=== PATIENT | male | born 1965 | race Two or more races ===

== ENCOUNTER 2019-12-01 07:07 | Day surgery (SDC) | payer OTHER ==
[~2019-12-01] VITALS: Ht 167.6 cm; Wt 99.8 kg
[2019-12-01] VITALS (9 sets, daily range): BP systolic 121–146; BP diastolic 77–88
[~2019-12-01 07:07] MED LIST: ceFAZolin 1gm IVPB IVPB ONE; celeBREX 200mg Cap **SURGERY PATIENTS ONLY ORAL ONE; oxyCONTIN 20mg tab ORAL ONE
--- NOTE | 2019-12-01 07:27 | Pre-Procedure Note/Attestation ---
Pre-Procedure Note/Attestation Complete Prior to Procedure Planned Procedure: right Procedure Narrative: knee arthroscopy, menisectomy Indications for Procedure Pre-Operative Diagnosis: right knee meniscus tear Attestation I attest that I discussed the nature of the procedure; its benefits; risks and complications; and alternatives (and the risks and benefits of such alternatives ), prior to the procedure, with the patient (or the patient's legal automobile sales representative). I attest that, if there was a reasonable possibility of needing a blood transfusion, the patient (or the patient's legal automobile sales representative) was given the [facility] standardized written summary, pursuant to the Stevie [place] Blood Safety Act ([place] Health and Safety Code # 1645, as amended). I attest that I re-evaluated the patient just prior to the surgery and that there has been no change in the patient's H&P, except as documented below: Ector Saavedra MD Dec 01, 2019 07:27
--- NOTE | 2019-12-01 07:28 | Operative Note - PDOC ---
Operative Note Operative Note Pre-op Diagnosis: right knee meniscus tear Procedure: see op report Post-op Diagnosis: same as pre-op plus Operative Findings: consistent w/pre-op dx studies Anesthesia: MAC Specimen: none Complications: none Condition: stable Estimated Blood Loss: none Implant(s) used?: No Ector Saavedra MD Dec 01, 2019 07:28
[2019-12-01] MEDS ORDERED: D5 1/2NS 1,000 ML IV SCH (07:30)
[2019-12-01] MEDS ORDERED: HYDROmorphone 1mg/ml Carpuject SUBQ PRN (07:30)
[2019-12-01] MEDS ORDERED: Tylenol #3 tab (300mg/30mg) ORAL PRN (07:30)
[2019-12-01] MEDS ORDERED: HYDROcodone/Acetamin 5/325 tab ORAL PRN (07:30)
[2019-12-01] MEDS ORDERED: Duramorph PF 5mg/10ml amp ONE (08:26)
[2019-12-01] MEDS ORDERED: Lidocaine 1% 10mg/ml/Epi 0.005mg/ml 30ml vial INJ ONE (08:26)
[2019-12-01] MEDS ORDERED: Kenalog-40 1ml Vial ONE (08:26)
[2019-12-01] MEDS ORDERED: Bupivacaine 0.25% Inj 30ml INJ ONE (08:26)
[2019-12-01] MEDS ORDERED: NS Irrig 2000ml IRRIG ONE ×4 (08:45→09:24)
[2019-12-01] MEDS ORDERED: LR 1000ml ONE (09:00)
[2019-12-01] MEDS ORDERED: Sterile Water Irrig 1000ml IRRIG ONE (09:00)
[2019-12-01] MEDS ORDERED: Ketorolac 30mg Inj ONE (09:04)
[2019-12-01] MEDS ORDERED: fentaNYL 100 mcg/2 mL IV ONE (09:07)
[2019-12-01] MEDS ORDERED: Midazolam 2mg/2ml Inj ONE (09:07)
[2019-12-01] MEDS ORDERED: fentaNYL 100 mcg/2 mL IV PRN (09:45)
[2019-12-01] MEDS ORDERED: Hydromorphone 0.5mg/0.5ml inj IVP PRN (09:45)
--- NOTE | 2019-12-01 09:47 | Anethesia Preoperative Eval ---
Anesthesia Pre-op PMH/ROS General Date of Evaluation: Dec 01, 2019 Time of Evaluation: 09:00 Anesthesiologist: soni ASA Score: ASA 2 Mallampati Score Class I : Soft palate, uvula, fauces, pillars visible Class II: Soft palate, uvula, fauces visible Class III: Soft palate, base of uvula visible Class IV: Only hard plate visible Mallampati Classification: Class III Surgeon: mynor Diagnosis: knee pain Surgical Procedure: right knee arthroscopy Anesthesia History: none Family History: no anesthesia problems Allergies: Coded Allergies: ACETAMINOPHEN (Verified Allergy, Severe, Itching, 12/01/19) ASPIRIN (Verified Allergy, Severe, Itching, 12/01/19) Medications: see eMAR Patient NPO?: Yes NPO Date: Dec 01, 2019 NPO Time: 00:01 Past Medical History Cardiovascular: Denies: HTN, CAD, NE, valve dz, arrhythmia, other Pulmonary: Denies: asthma, COPD, HALIMA, other Gastrointestinal/Genitourinary: Denies: GERD, CRI, ESRD, other Neurologic/Psychiatric: Denies: dementia, CVA, depression/anxiety, TIA, other Endocrine: Denies: DM, hypothyroidism, steroids, other HEENT: Denies: cataract (L), cataract (R), glaucoma, [place] (L), [place] (R), other Hematology/Immune: Denies: anemia, DVT, bleeding disorder, other Musculoskeletal/Integumentary: Denies: OA, RA, DJD, DDD, edema, other Other: obesity PSxH Narrative: denied Anesthesia Pre-op Phys. Exam Physician Exam Last Vital Signs Date Time Temp Pulse Resp B/P (MAP) Pulse Ox O2 Delivery O2 Flow Rate FiO2 12/01/19 07:44 97.7 76 18 146/78 98 Room Air Constitutional: NAD Neurologic: CN 2-12 intact Cardiovascular: RRR Respiratory: CTA Gastrointestinal: S/NT/ND Airway Exam Mallampati Classification 3 Mallampati Score: Class III MO: limited Neck: 1fb ROM: limited Dentures: no upper, no lower Anesthesia Pre-op A/P Studies Pre-op Studies: EKG - SR Risk Assessment & Plan Plan: general Status Change Before Surgery: No Pre-Antibiotics Drug: ancef Given Within 1 Hr of Incision: Yes Time Given: 09:20 Ivonne Livingston CRNA Dec 01, 2019 09:47
[2019-12-01] MEDS ORDERED: Metoclopramide 10mg/2ml Inj ONE (09:48)
[2019-12-01] MEDS ORDERED: Lidocaine 1% MPF 10mg/ml 5ml ONE (09:48)
--- NOTE | 2019-12-01 11:51 | Immediate Post-Op Evaluation ---
Immediate Post-Op Evalulation Immediate Post-Op Evalulation Procedure: knee scope right Date of Evaluation: Dec 01, 2019 Time of Evaluation: 10:06 IV Fluids: 500 Blood Pressure Systolic: 122 Blood Pressure Diastolic: 60 Pulse Rate: 70 Respiratory Rate: 14 O2 Sat by Pulse Oximetry: 99 Temperature (Fahrenheit): 97.5 Nausea: No Vomiting: No Patient Status: awake, reacts, patent Drug: ancef Given Within 1 Hr of Incision: Yes Time Given: 09:10 Ivonne Livingston CRNA Dec 01, 2019 11:51
--- NOTE | 2019-12-01 13:57 | 48 Hour Post Anesthesia Eval ---
Post Anesthesia Evaluation Procedure: knee scope right Date of Evaluation: Dec 01, 2019 Time of Evaluation: 13:57 Blood Pressure Systolic: 135 0: 88 Pulse Rate: 54 Respiratory Rate: 4 O2 Sat by Pulse Oximetry: 98 Airway: patent Nausea: No Vomiting: No Hydration Status: adequate Cardiopulmonary Status: stable Mental Status/LOC: patient returned to baseline Post-Anesthesia Complications: none Follow-up care needed: N/A Ivonne Livingston CRNA Dec 01, 2019 13:57
--- NOTE | 2019-12-01 16:15 | Operative Note - Dictated ---
DATE OF OPERATION: 12/01/2019 PREOPERATIVE DIAGNOSIS: Right knee medial meniscus tear. POSTOPERATIVE DIAGNOSES: 1. Right knee medial meniscus tear. 2. Right knee synovitis medial and lateral patellofemoral compartment. PROCEDURES: 1. Right knee diagnostic arthroscopy and partial medial meniscectomy. 2. Synovectomy medial and lateral patellofemoral compartment. SURGEON: Ector Saavedra MD. ANESTHESIA: MAC with local. INDICATION FOR PROCEDURE: Patient is a pleasant 54-year-old gentleman with progressive right knee pain. He had MRI, which showed a meniscal tear. He failed conservative treatment. He elected to undergo right knee arthroscopic medial meniscectomy. Risks, limitations, expectations, complications of procedure were discussed in detail. Patient understood that the pain from the meniscus should improve with the surgery while the pain that he has from the arthritis, may or may not get better. All questions were addressed. DESCRIPTION OF PROCEDURE: After informed consent was obtained, patient was brought to the operating room. Patient was placed under general anesthesia. Right leg was prepped and draped in a sterile manner. Time-out was performed. Ancef was administered. Inferolateral stab incision was then made. Trocar was introduced into the knee joint. There was hypertrophic synovial tissue in patellofemoral compartment. No chondral damage. Medial gutter was entered, no loose bodies. Medial compartment was entered. Medial working portal was established. There was a complex tear in posterior horn medial meniscus. Partial meniscectomy was performed. There was some grade 2 chondral damage in medial tibial plateau. At this point, the synovectomy was extended to intercondylar notch lateral compartment. The ACL was probed, noted to be intact. Lateral compartment was entered free of meniscal chondral damage. The patellofemoral compartment was then entered. Synovectomy was completed. Instruments were removed. Portal sites were closed with 3-0 Monocryl sutures. Steri-Strips and a sterile dressing were applied. ESTIMATED BLOOD LOSS: None. COMPLICATIONS: None. SPECIMENS: None. IMPLANTS: None. Ector Saavedra M.D. DR: MIREYA JOB#: [id number] CC: [email or web address]
== END 2019-12-01 11:45 | disposition home or self-care (01) ==
LOC: SUR 07:07
DX: S83.241A Other tear of medial meniscus, current injury, right knee, initial encounter (principal); M65.9 Synovitis and tenosynovitis, unspecified; X58.XXXA Exposure to other specified factors, initial encounter; Y92.9 Unspecified place or not applicable; Z88.6 Allergy status to analgesic agent; E66.9 Obesity, unspecified; Z68.35 Body mass index [BMI] 35.0-35.9, adult
CPT/HCPCS: 29876; 29881; 94003; J0690; J1885; J2250; J2405; J2704; J2765; J3010; J3301; J3490; J7120; 94150